=== PATIENT | female | born 1980 | race American Indian/Alaskan Native ===

== ENCOUNTER 2017-03-25 17:37 | Inpatient (IN) | payer OTHER ==
[2017-03-25] MEDS ORDERED: LACTATED RINGERS 2,000 ML ONE (18:16)
[2017-03-25] MEDS ORDERED: REGLAN IV ONE (18:17)
[2017-03-25] MEDS ORDERED: BICITRA PO ONE (18:17)
[2017-03-25] MEDS ORDERED: PEPCID IV ONE (18:17)
--- NOTE | 2017-03-25 18:17 | History and Physical Report ---
History of Present Illness Date of examination: 03/25/17 Date of admission: 03/25/17 17:37 Chief complaint: SROM meconium fluid History of present illness: Pt is a 36yo BF EDC 04/08/17; EGA 38 0/7 weeks presents to L&D complaining of SROM greenish fluid @ 1600 followed by irregular contractions. She received care at [facility] since 13 weeks and course has been unremarkable . records are available and GBS is Negative. Past History Past Medical History: no pertinent history Past Surgical History: D&C Family/Genetic History: none Social history: no significant social history, - Obstetrical History Expected Date of Delivery: 04/08/17 Actual Gestation: 38 Week(s) 0 Day(s) : 3 Medications and Allergies Allergies Allergy/AdvReac Type Severity Reaction Status Date / Time latex AdvReac Rash Verified 03/25/17 17:45 powdered gloves Allergy skin Uncoded 03/25/17 17:45 irritation Home Medications Medication Instructions Recorded Confirmed Last Taken Type Ferrous Sulfate [Feosol 325 MG tab] 325 mg PO BID #60 tablet 03/25/17 Unknown Rx HYDROcodone/APAP 5-325 [[place] 1 each PO Q6HR PRN #30 tablet 03/25/17 Unknown Rx 5/325] Ibuprofen [Motrin] 800 mg PO Q8HR PRN #30 tablet 03/25/17 Unknown Rx Vit W-Ca,Fe,FA(<1 mg) 1 each PO DAILY #30 tablet 03/25/17 Unknown Rx [ Vitamins] Vit-Fe Fumar-FA [ 1 tab PO QDAY 03/25/17 03/25/17 03/25/17 09: 00 History Vitamin] 1 Review of Systems All systems: negative - Vital Signs Vital signs: Vital Signs Temp Resp 98.2 F 03/25/17 17:47 03/25/17 17:47 Temp Pulse Resp BP Pulse Ox 98.2 F 03/25/17 17:47 03/25/17 17:47 - Physical Exam Breasts: Positive: deferred Cardiovascular: Regular rate Lungs: Positive: Clear to auscultation Abdomen: Positive: normal appearance Genitourinary (Female): Positive: normal external genitalia Vagina: Positive: other (meconium fluid) Uterus: Positive: enlarged Anus/Rectum: Positive: normal perianal skin Extremities: Positive: normal - Obstetrical FHR: category 2 Uterine Contraction Monitor Mode: External Cervical Dilatation: 1 Cervical Effacement Percentage: 50 station: -3 Uterine Contraction Pattern: Irregular Uterine Tone Measurement Phase: Contraction Uterine Contraction Intensity: Mild Results Result Diagrams: 03/25/17 18:40 All other labs normal. Assessment and Plan - Patient Problems (1) 38 weeks gestation of Onset Date: 03/25/17 Current Visit: Yes Status: Acute Plan to address problem: A: IUP @ 38 0/7 weeks in labor Malpresentation - Transverse/Breech Category 2 tracing Meconium fluid Desires permanent sterilization P: Admit to L&D for emergent C Section delivery with BTL
[2017-03-25] MEDS ORDERED: ANCEF/STERILE WATER 2 GM/20 ML 2 GM/20 ML SYRINGE IV NR (19:00)
[2017-03-25] MEDS ORDERED: LACTATED RINGERS 1,000 ML IV SCH (19:00)
[2017-03-25] MEDS ORDERED: PITOCin/NS 20 UNIT/1000ML DRIP 20 UNITS/1,000 ML BAG IV SCH ×2 (19:00→22:00)
[2017-03-25 19:07] LABS: Basophils % (Auto) 0.4 % (0.0-1.8); Eosinophils % (Auto) 1.3 % (0.0-4.3); Hematocrit 38.5 % (30.3-42.9); Hemoglobin 12.7 gm/dl (10.1-14.3); Mean Corpuscular HGB Conc 33 % (30-34); Mean Corpuscular Hemoglobin 27 pg (28-32); Mean Corpuscular Volume 83 fl (79-97); Platelet Count 212 K/mm3 (140-440); Red Blood Count 4.62 M/mm3 (3.65-5.03); Red Cell Distribution Width 14.8 % (13.2-15.2); White Blood Count 12.4 K/mm3 (4.5-11.0)
[2017-03-25] MEDS ORDERED: MORPHINE ONE (19:23)
[2017-03-25] MEDS ORDERED: NEO SYNEPHRINE ONE (19:49)
[2017-03-25] MEDS ORDERED: ZOFRAN ONE (19:49)
[2017-03-25] MEDS ORDERED: NACL 0.9% 100 ML ONE (19:49)
[2017-03-25] MEDS ORDERED: VERSED ONE (20:04)
[2017-03-25] MEDS ORDERED: TYLENOL PO PRN (21:02)
[2017-03-25] MEDS ORDERED: MYLICON PO PRN (21:02)
[2017-03-25] MEDS ORDERED: NARCAN 0.4 MG/1 ML IV PRN (21:02)
[2017-03-25] MEDS ORDERED: ZOFRAN IV PRN (21:02)
[2017-03-25] MEDS ORDERED: LANSINOH TP PRN (21:02)
[2017-03-25] MEDS ORDERED: TORADOL IV PRN (21:02)
[2017-03-25] MEDS ORDERED: NORCO 5/325 PO PRN (21:02)
[2017-03-25] MEDS ORDERED: MILK OF MAGNESIA PO PRN (21:02)
[2017-03-25] MEDS ORDERED: TUCKS PAD TP PRN (21:02)
[2017-03-25] MEDS ORDERED: SENOKOT PO PRN (21:02)
[2017-03-25] MEDS ORDERED: DEMEROL ONE (21:08)
--- NOTE | 2017-03-25 21:20 | Operative Report ---
Operative Report Operative Report: Date of procedure: 03/25/2017 Pre-operative diagnosis: 1. Intrauterine at 38-0/7 weeks 2. Meconium fluid 3. Nonreassuring surveillance 4. Malpresentation - transverse/ breech presentation 5. Desires permanent sterilization Post-operative diagnosis: Same with fibroid uterus Procedure name(s): 1. Primary low transverse section 2. Bilateral tubal ligation Surgeon: Mike Hawkins MD Director Trade: None Anesthesia: Spinal epidural by Dr. Elizalde EBL: 500 mL's Findings: A 2872 g female Apgars 6 at 1 minute 9 at 5 minutes. Transverse presentation - delivered breech. Thick meconium fluid. Multi- myomatous uterus. Normal tubes and ovaries bilaterally. Procedure: After the patient was prepped and draped in usual sterile fashion, and after satisfactory level of epidural anesthesia was obtained, the skin knife was used to make a transverse skin incision. The incision was excised down to layer of the fascia, which was nicked in the midline and extended laterally using the Bovie cautery. The rectus muscles were dissected off the rectus fascia both superiorly and inferiorly. The rectus bellies in the midline, and the peritoneum was entered under direct visualization. The peritoneal incision was extended superiorly and inferiorly. A bladder flap was created and the bladder blade was then placed. The uterus was scored in a curvilinear linear fashion, entered in the midline revealing thick meconium amniotic fluid. The infant was in a transverse presentation, thus the two feet were grasped and the infant was delivered breech. After the infant's head was delivered onto the surgical field the oropharynx and nasopharynx were bulb suctioned. The cord was doubly clamped and cut and the was handed to the waiting respiratory team. The placenta was manually removed from the uterus , and the uterus removed from its normal anatomical position, and had multiple fibroids. After gentle uterine lavage, the incision was inspected and found to be without extensions. It was then closed in 2 layers using 0 Vicryl suture in a running interlocking fashion, the second layer imbricating the first. After good hemostasis was achieved, copious amounts or irrigation was performed, and the gutters were suctioned free of blood and blood clots. Next the Rosetta was used to grasp the right fallopian tube, and after identifying the fimbriated of the tube, the Filshie clip was applied to the proximal portion of the tube. The same procedure performed on the left fallopian tube. The Rosetta was used to grasp the left fallopian tube, and after identifying the fimbriated end of the tube, the Filshie clip was applied to the proximal portion of the tube. Tisseel sealant was sprayed across the uterine incision. The uterus was then returned to its normal anatomical position, and after excellent hemostasis assured, the peritoneum was reapproximated using 3-0 Vicryl suture in a running interlocking fashion, and then the rectus muscles were reapproximated using 3-0 Vicryl suture in a [id number] configuration. The fascia was then reapproximated using 0 Vicryl suture in running interlocking fashion. The subcutaneous layer was made hemostatic using Bovie cautery, the Tisseel sealant was sprayed across the fascial incision and reapproximated using 3-0 Vicryl suture in a running interlocking fashion. The skin edges were reapproximated using 4-0 Vicryl suture in a subcuticular fashion. The patient tolerated the procedure well was transported to recovery in stable condition.
[2017-03-25] MEDS ORDERED: MORPHINE IV PRN ×2 (21:29)
--- NOTE | 2017-03-25 21:29 | Anesthesia Consultation ---
Anesthesia Consult and Med Hx Date of service: 03/25/17 - Airway Anesthetic Teeth Evaluation: Good ROM Head & Neck: Adequate Mental/Hyoid Distance: Adequate Mallampati Class: Class II Intubation Access Assessment: Probably Good - Pulmonary Exam CTA: Yes - Cardiac Exam Cardiac Exam: RRR - Pre-Operative Health Status ASA Pre-Surgery Classification: ASA2 Proposed Anesthetic Plan: Epidural, Spinal - Pulmonary Hx Smoking: No Hx Asthma: No COPD: No Hx Pneumonia: No - Cardiovascular System Hx Hypertension: No - Central Nervous System Hx Seizures: No Hx Psychiatric Problems: No - Gastrointestinal Hx Gastroesophageal Reflux Disease: No - Endocrine Hx Renal Disease: No Hx End Stage Renal Disease: No Hx Non-Insulin Dependent Diabetes: No Hx Hypothyroidism: No Hx Hyperthyroidism: No - Hematic Hx Anemia: No Hx Sickle Cell Disease: No - Other Systems Hx Alcohol Use: No (occas) Hx Cancer: No Hx Obesity: Yes
--- NOTE | 2017-03-25 21:29 | Post Anesthesia Evaluation ---
- Post Anesthesia Evaluation Patient Participated: Yes Airway Patent: Yes Stable Respiratory Function: Yes Nausea/Vomiting: No Temp > 96.8F: Yes Pain Manageable: Yes Adequeate Hydration: Yes Anesthesia Complications: No Block Receding Appropriately: Not Applicable Patient on Ventilator: No
--- NOTE | 2017-03-25 21:29 | Anesthesia Day of Surgery ---
Anesthesia Day of Surgery - Day of Surgery Patient Examined: Yes Patient H&P Reviewed: Yes Patient is NPO: Yes
[2017-03-25 21:47] LABS: ISTAT Base Excess -1; ISTAT HCO3 26.2; ISTAT PCO2 62.2 (35-45); ISTAT PH 7.233 (7.35-7.45); ISTAT PO2 13 (80-105); ISTAT SO2 11; ISTAT TCO2 28
[2017-03-25 21:56] LABS: ISTAT Base Excess -3; ISTAT HCO3 23.5; ISTAT PCO2 47.3 (35-45); ISTAT PH 7.303 (7.35-7.45); ISTAT PO2 22 (80-105); ISTAT SO2 33; ISTAT TCO2 25
[2017-03-25] MEDS ORDERED: D5LR 1,000 ML IV SCH (22:00)
[2017-03-25] MEDS ORDERED: SODIUM CHLORIDE FLUSH SYRINGE 10 ML IV PRN (22:00)
[2017-03-26] MEDS: ANCEF/NS 1 GM/50 ML 1 GM/50 ML BAG IV SCH ×2 (02:52→10:52)
[2017-03-26] MEDS: MOTRIN PO PRN ×3 (02:57→18:05)
--- NOTE | 2017-03-26 08:52 | Progress Note ---
Assessment and Plan POD #1 s/p Primary LTCS -doing well P: -Continue present care -Anticipate D/C in 24-48 hrs: - Patient Problems (1) S/P primary low transverse Current Visit: Yes Status: Acute Subjective - Subjective Date of service: 03/26/17 Principal diagnosis: POD # 1 Interval history: Patient seen and examined, stable doing well. No shortness of breath or chest pain, adequate bowel bladder function. Still has lynn in place, has not ambulated yet. Patient reports: appetite normal, voiding normally, pain well controlled, no nauseated Jermyn: doing well Objective - Vital Signs Latest vital signs: Vital Signs Temp Pulse Pulse Resp BP BP Pulse Ox 03/26/17 04:45 98.5 F 20 120/73 03/25/17 23:00 98.7 F 101 H 20 147/71 03/25/17 21:35 98 H 20 124/69 99 03/25/17 21:28 75 97 03/25/17 21:25 98.0 F 105 H 25 H 129/69 99 03/25/17 21:20 97 H 20 117/63 99 03/25/17 21:15 109 H 20 114/61 99 03/25/17 21:10 98.0 F 105 H 25 H 99 03/25/17 19:10 102 H 165/94 03/25/17 17:47 98.2 F 20 Intake and Output 03/25/17 03/26/17 03/26/17 22:59 06:59 14:59 Intake Total 125 530 Output Total 700 600 Balance -575 -70 Intake: IV 125 50 ANCEF/NS 1 GM/50 ML 1 gm 50 In 50 ml @ 100 mls/hr IV Q8H DES Rx#:[id number] D5lr 1,000 ml @ 125 mls/ 125 hr IV DIRECT DES Rx#: [id number] Oral 480 Output: Urine 700 600 Indwelling Catheter 350 600 Uretheral (Lynn) 350 Other: Total, Intake Amount 120 Total, Output Amount 350 600 # Voids Void 1 Weight 128.82 kg Estimated Blood Loss 600 - Exam Cardiovascular: Present: Regular rate, Normal S1, Normal S2 Lungs: Present: Clear to auscultation, Normal air movement Abdomen: Present: normal appearance, soft. Absent: distention, tenderness, guarding, rigidity Uterus: Absent: tenderness Extremities: Present: normal Incision: Present: dressed - Labs Labs: Abnormal lab results 03/25/17 03/25/17 03/25/17 Range/Units 18:40 21:41 21:50 WBC 12.4 H (4.5-11.0) K/mm3 MCH 27 L (28-32) pg [place] % (Auto) 9.2 H (0.0-7.3) % [place] # 1.2 H (0.0-0.8) K/mm3 Seg Neutrophils # 7.9 H (1.8-7.7) K/mm3 POC ABG pH 7.233 L 7.303 L (7.35-7.45) POC ABG pCO2 62.2 H 47.3 H (35-45) POC ABG pO2 13 L 22 L (80-105)
[2017-03-26 09:34] LABS: Hematocrit 35.1 % (30.3-42.9); Hemoglobin 11.2 gm/dl (10.1-14.3)
[2017-03-26] MEDS: FEOSOL PO SCH (10:53)
[2017-03-26] MEDS: PRENATAL VITAMIN PO SCH (10:53)
[2017-03-26] MEDS: PERCOCET 5/325 PO PRN ×2 (11:01→18:05)
--- NOTE | 2017-03-26 12:00 | Progress Note ---
Subjective Date of service: 03/26/17 Principal diagnosis: POD # 1 Interval history: 1st POD after Patient is in the bed, comfortable. Pain is well controlled with pain meds. No pruritu s . Ambulated well. No residual neurological deficit. No anesthesia complications Objective - Constitutional Vitals: Vital Signs - 12hr 03/26/17 03/26/17 04:45 09:00 Temperature 98.5 F 98.3 F Pulse Rate [ 100 H Right From Monitor] Respiratory 20 20 Rate Blood Pressure 120/73 132/67 [Right Arm] - Labs CBC & Chem 7: 03/26/17 08:54 Labs: Abnormal lab results 03/25/17 03/25/17 03/25/17 Range/Units 18:40 21:41 21:50 WBC 12.4 H (4.5-11.0) K/mm3 MCH 27 L (28-32) pg [place] % (Auto) 9.2 H (0.0-7.3) % [place] # 1.2 H (0.0-0.8) K/mm3 Seg Neutrophils # 7.9 H (1.8-7.7) K/mm3 POC ABG pH 7.233 L 7.303 L (7.35-7.45) POC ABG pCO2 62.2 H 47.3 H (35-45) POC ABG pO2 13 L 22 L (80-105)
[2017-03-26] MEDS ORDERED: M-M-R II VACCINE SUB-Q ONE (21:03)
[2017-03-27] MEDS: MOTRIN PO PRN ×2 (01:07→14:00)
[2017-03-27] MEDS ORDERED: BOOSTRIX IM ONE (06:00)
[2017-03-27] MEDS: PERCOCET 5/325 PO PRN ×2 (06:51→14:00)
--- NOTE | 2017-03-27 08:31 | Progress Note ---
Assessment and Plan POD #2 s/p Primary LTCS -doing well P: -Discharged home per patient's request -Up in clinic in 1-2 weeks - Patient Problems (1) S/P primary low transverse Current Visit: Yes Status: Acute Subjective - Subjective Date of service: 03/27/17 Principal diagnosis: POD # 2 Interval history: Patient seen and examined, stable doing well. No shortness of breath or chest pain, adequate bowel bladder function. Ambulating without difficulty and desires discharge home Patient reports: appetite normal, voiding normally, pain well controlled, flatus , ambulating normally, no dizzy ambulation, no nauseated : doing well Objective - Vital Signs Latest vital signs: Vital Signs Temp Pulse Resp BP 03/27/17 00:00 98.7 F 90 18 111/66 03/26/17 20:15 98.8 F 95 H 20 121/75 03/26/17 15:05 98.5 F 88 20 128/67 03/26/17 12:00 98 F 73 20 116/64 03/26/17 09:00 98.3 F 100 H 20 132/67 Intake and Output 03/26/17 03/27/17 03/27/17 22:59 06:59 14:59 Intake Total 600 Output Total 500 Balance 100 Intake: Oral 600 Output: Urine 500 Void 500 Other: Total, Intake Amount 240 Total, Output Amount 500 - Exam Abdomen: Present: normal appearance, soft. Absent: distention, tenderness, guarding, rigidity Uterus: Present: fundal height below umbilicus. Absent: tenderness Extremities: Present: normal Incision: Present: dry, intact
--- NOTE | 2017-03-27 08:32 | Discharge Summary ---
Providers - Providers Date of Admission: 03/25/17 17:37 Date of discharge: 03/27/17 Attending physician: CHOCO JOVEL Primary care physician: CHOCO JOVEL Hospitalization Reason for admission: rupture of membranes, IUP at term Delivery: Procedure: primary low transverse Incision: dry, intact Other procedures: none complications: none Discharge diagnosis: IUP at term delivered baby: female Hospital course: Uncomplicated hospital course Condition at discharge: Good Disposition: DISCHARGED TO HOME OR SELFCARE - Discharge Diagnoses (1) S/P primary low transverse Status: Acute Plan - Discharge Medications Prescriptions: Ferrous Sulfate [Feosol 325 MG tab] 325 mg PO BID #60 tablet HYDROcodone/APAP 5-325 [[place] 5/325] 1 each PO Q6HR PRN #30 tablet PRN Reason: Pain Ibuprofen [Motrin] 800 mg PO Q8HR PRN #30 tablet PRN Reason: Moder Pain Unrelieved By [place] Vit W-Ca,Fe,FA(<1 mg) [ Vitamins] 1 each PO DAILY #30 tablet - Provider Discharge Summary Activity: no sex for 6 weeks, no heavy lifting 4 weeks, no strenuous exercise Diet: routine Additional instructions: [] Smoking cessation referral if applicable(refer to patient education folder for contact #) [] Refer to [facility] Booklet Call your doctor immediately for: * Fever > 100.5 * Heavy vaginal bleeding ( >1 pad per hour) * Severe persistent headache * Shortness of breath * Reddened, hot, painful area to leg or breast * Drainage or odor from incision. * Keep incision clean and dry at all times and follow doctor's instructions regarding bathing/showering - Follow up plan Follow up: CHOCO JOVEL MD [Primary Care Provider] - 7 Days
[2017-03-27] MEDS: PRENATAL VITAMIN PO SCH (10:28)
[2017-03-27] MEDS: FEOSOL PO SCH (10:28)
[2017-03-27 17:16] VITALS: BP 144/79
== END 2017-03-27 16:00 | disposition home or self-care (01) | DRG 765 ==
LOC: LD 17:37 → OB 22:36
PROVIDERS: ADMIT Obstetrics & Gynecology; ATTEND Obstetrics & Gynecology
PROC: 10D00Z1 Extraction of Products of Conception, Low, Open Approach (ICD-10-PCS; principal; 2017-03-25)
PROC: 4A033R1 Measurement of Arterial Saturation, Peripheral, Percutaneous Approach (ICD-10-PCS; 2017-03-25)
PROC: 0UL70CZ Occlusion of Bilateral Fallopian Tubes with Extraluminal Device, Open Approach (ICD-10-PCS; 2017-03-25)
DX: O32.2XX0 Maternal care for transverse and oblique lie, not applicable or unspecified (principal); Z68.41 Body mass index [BMI] 40.0-44.9, adult; O77.0 Labor and delivery complicated by meconium in amniotic fluid; O99.214 Obesity complicating childbirth; O76 Abnormality in fetal heart rate and rhythm complicating labor and delivery; Z91.040 Latex allergy status; Z3A.38 38 weeks gestation of pregnancy; Z37.0 Single live birth; Z30.2 Encounter for sterilization; O34.13 Maternal care for benign tumor of corpus uteri, third trimester; D25.9 Leiomyoma of uterus, unspecified
CPT/HCPCS: 36415; 82803; 85014; 85018; 85025; 86850; 86900; 86901; 88307; C9250; J0690; J1885; J2175; J2250; J2270; J2370; J2405; J2590; J2765; J7120; J7121